=== PATIENT | female | born 1990 | race African-American/Black ===

== ENCOUNTER 2020-08-13 15:45 | Emergency (ER) | payer MEDICAID, OTHER ==
[~2020-08-13] VITALS: Ht 167.6 cm; Wt 110.0 kg
[2020-08-13] MEDS ORDERED: SODIUM CHLORIDE 0.9% 1,000 ML IV ONE (17:45)
[2020-08-13 17:56] LABS: BASOPHILS % 0.7 % (0.0-2.0); EOSINOPHILS % 1.9 % (0.0-5.0); HEMATOCRIT. 35.7 % (36.0-48.0); HEMOGLOBIN. 12.6 g/dL (12.0-16.0); LYMPHOCYTES % 19.6 % (20.0-50.0); MEAN CORPUSCULAR HEMOGLOBIN 34.2 pg (28.0-32.0); MEAN CORPUSCULAR VOLUME 97.2 fL (81.0-99.0); MEAN PLATELET VOLUME 8.9 fl (7.4-10.4); MONOCYTES % 7.2 % (2.0-8.0); NEUTROPHILS % 70.6 % (40.0-76.0); PLATELET 285 x1000/uL (130-400); RED BLOOD CELL COUNT 3.67 mill/uL (4.2-5.4); RED CELL DISTRIBUTION WIDTH 12.9 % (11.6-14.6)
[2020-08-13 17:59] LABS: CHLORIDE 108 mEq/L (98-107)
[2020-08-13 18:03] LABS: HCG SCREEN NEGATIVE
[2020-08-13] MEDS ORDERED: ASPIRIN 325MG EC TABLET PO ONE (18:30)
[2020-08-13] MEDS ORDERED: ACETAMINOPHEN 325MG TABLET PO ONE (18:30)
[2020-08-13 19:30] VITALS: BP 150/108
== END 2020-08-13 21:53 | disposition left against medical advice (07) ==
LOC: ER 15:45
DX: R07.89 Other chest pain (principal); F17.210 Nicotine dependence, cigarettes, uncomplicated; Z90.49 Acquired absence of other specified parts of digestive tract
CPT/HCPCS: 36415; 71045; 80053; 83880; 84484; 84703; 85025; 93005; 96360; 99285; J7030

== ENCOUNTER 2020-10-22 20:10 | Emergency (ER) | payer MEDICAID, OTHER ==
[~2020-10-22] VITALS: Ht 165.1 cm; Wt 107.0 kg
[~2020-10-22 20:10] MED LIST: IBUP-2029 MT
[2020-10-22 20:18] VITALS: BP 145/96
[2020-10-22 22:53] LABS: BASOPHILS % 0.4 % (0.0-2.0); EOSINOPHILS % 1.5 % (0.0-5.0); HEMOGLOBIN. 13.3 g/dL (12.0-16.0); LYMPHOCYTES % 19.5 % (20.0-50.0); MEAN CORPUSCULAR HEMOGLOBIN 33.8 pg (28.0-32.0); MEAN PLATELET VOLUME 8.8 fl (7.4-10.4); MONOCYTES % 6.3 % (2.0-8.0); NEUTROPHILS % 72.3 % (40.0-76.0); PLATELET 250 x1000/uL (130-400); RED BLOOD CELL COUNT 3.92 mill/uL (4.2-5.4); RED CELL DISTRIBUTION WIDTH 12.9 % (11.6-14.6)
[2020-10-22 23:00] LABS: CHLORIDE 107 mEq/L (98-107)
[2020-10-22 23:07] LABS: HCG SCREEN NEGATIVE
== END 2020-10-22 23:45 | disposition home or self-care (01) ==
LOC: ER 20:10
DX: R42 Dizziness and giddiness (principal); Z90.49 Acquired absence of other specified parts of digestive tract
CPT/HCPCS: 36415; 80048; 84703; 85025; 99283

== ENCOUNTER 2023-04-07 15:56 | Emergency (ER) | payer MEDICAID, OTHER ==
[~2023-04-07] VITALS: Ht 167.6 cm; Wt 75.0 kg
[2023-04-07 16:04] VITALS: BP 146/93; PULSE 101; RESP 16; TEMP 98.8; O2SAT 97
[2023-04-07] MEDS ORDERED: HYDROCODONE/ACETAMINOPHEN 5/325MG TABLET PO STA (16:22)
[2023-04-07] MEDS ORDERED: ONDANSETRON 4MG ODT PO STA (16:22)
[2023-04-07] MEDS ORDERED: MAGNESIUM/ALUMINUM HYDROXIDE/SIMETHICONE 30ML UDC PO STA (16:22)
[2023-04-07 16:49] LABS: BASOPHILS % 0.7 % (0.0-2.0); DIFFERENTIAL COMMENT 0; EOSINOPHILS % 2.3 % (0.0-5.0); HEMATOCRIT. 39.6 % (36.0-48.0); HEMOGLOBIN. 13.7 g/dL (12.0-16.0); LYMPHOCYTES % 22.4 % (20.0-50.0); MEAN CORPUSCULAR HEMOGLOBIN 35.5 pg (28.0-32.0); MEAN CORPUSCULAR HGB CONC 34.6 g/dL (31.0-37.0); MEAN CORPUSCULAR VOLUME 102.7 fL (81.0-99.0); MEAN PLATELET VOLUME 8.4 fl (7.4-10.4); MONOCYTES % 6.5 % (2.0-8.0); NEUTROPHILS % 68.1 % (40.0-76.0); PLATELET 293 x1000/uL (130-400); RED BLOOD CELL COUNT 3.85 mill/uL (4.2-5.4); RED CELL DISTRIBUTION WIDTH 13.1 % (11.6-14.6); WHITE BLOOD COUNT 9.8 x1000/uL (4.5-11.0)
[2023-04-07 17:04] LABS: HCG SCREEN NEGATIVE
[2023-04-07 17:05] LABS: ALANINE AMINOTRANSFERASE 20 IU/L (10-49); ALBUMIN 4.6 g/dL (3.2-4.8); ASPARTATE AMINOTRANSFERASE 24 IU/L (<34); BILIRUBIN TOTAL 0.3 mg/dL (0.1-1.0); CALCIUM 9.1 mg/dL (8.7-10.4); CARBON DIOXIDE 28 mEq/L (21-32); CHLORIDE 103 mEq/L (98-107); CREATININE 0.9 mg/dL (0.6-1.0); GLUCOSE 78 mg/dL (70-105); POTASSIUM 4.4 mEq/L (3.5-5.1); PROTEIN TOTAL 7.5 g/dL (6.0-8.3); SODIUM 135 mEq/L (136-145); UREA NITROGEN BLOOD 13 mg/dL (9-23)
[2023-04-07] MEDS ORDERED: PROT40 MT (19:45)
[2023-04-07] MEDS ORDERED: SIME125C MT (19:45)
[2023-04-07] MEDS ORDERED: ONDANSETRON 4MG ODT PO NR (21:00)
[2023-04-07] MEDS ORDERED: HYDROCODONE/ACETAMINOPHEN 5/325MG TABLET PO NR (21:00)
[2023-04-07] MEDS ORDERED: MAGNESIUM/ALUMINUM HYDROXIDE/SIMETHICONE 30ML UDC PO NR (21:00)
== END 2023-04-07 22:15 | disposition home or self-care (01) ==
LOC: ER 17:20
DX: R10.816 Epigastric abdominal tenderness (principal)
CPT/HCPCS: 36415; 76700; 80053; 84703; 85025; 99284

== ENCOUNTER 2024-04-22 14:46 | Emergency (ER) | payer MEDICAID ==
[~2024-04-22] VITALS: Ht 172.7 cm; Wt 91.0 kg
[~2024-04-22 14:46] MED LIST changes: +PROT40 MT; +SIME125C MT
[2024-04-22 14:47] VITALS: BP 150/99; PULSE 92; RESP 18; TEMP 36.6; O2SAT 100
[2024-04-22 16:25] LABS: BASOPHILS % 0.5 % (0.0-2.0); EOSINOPHILS % 1.7 % (0.0-5.0); HEMATOCRIT. 41.6 % (36.0-48.0); HEMOGLOBIN. 13.5 g/dL (12.0-16.0); LYMPHOCYTES % 18.5 % (20.0-50.0); MEAN CORPUSCULAR HEMOGLOBIN 32.4 pg (28.0-32.0); MEAN CORPUSCULAR HGB CONC 32.5 g/dL (31.0-37.0); MEAN CORPUSCULAR VOLUME 99.7 fL (81.0-99.0); MEAN PLATELET VOLUME 8.9 fl (7.4-10.4); MONOCYTES % 4.1 % (2.0-8.0); NEUTROPHILS % 75.2 % (40.0-76.0); PLATELET 327 x1000/uL (130-400); RED BLOOD CELL COUNT 4.17 mill/uL (4.2-5.4); RED CELL DISTRIBUTION WIDTH 13.6 % (11.6-14.6); WHITE BLOOD COUNT 12.6 x1000/uL (4.5-11.0)
[2024-04-22 16:30] LABS: CHLORIDE 103 mEq/L (98-107); POTASSIUM 3.8 mEq/L (3.5-5.1); SODIUM 140 mEq/L (136-145)
[2024-04-22 16:31] LABS: CARBON DIOXIDE 28 mEq/L (21-32)
[2024-04-22 16:32] LABS: CALCIUM 9.4 mg/dL (8.7-10.4)
[2024-04-22 16:36] LABS: CREATININE 0.8 mg/dL (0.6-1.0); GLUCOSE 94 mg/dL (70-105)
[2024-04-22 16:37] LABS: UREA NITROGEN BLOOD 8 mg/dL (9-23)
[2024-04-22 16:47] LABS: HCG SCREEN NEGATIVE
[2024-04-22 16:51] LABS: TROPONIN I HIGH SENSITIVITY < 4 ng/L (3.0-34)
== END 2024-04-22 16:16 | disposition left against medical advice (07) ==
LOC: ER 14:46
DX: R07.9 Chest pain, unspecified (principal); Z53.21 Procedure and treatment not carried out due to patient leaving prior to being seen by health care provider
CPT/HCPCS: 36415; 71045; 80048; 84484; 84703; 85025; 93005

== ENCOUNTER 2024-04-28 14:38 | Emergency (ER) | payer MEDICAID ==
[~2024-04-28] VITALS: Ht 172.7 cm; Wt 69.0 kg
[2024-04-28 14:40] VITALS: BP 119/74; PULSE 90; RESP 18; TEMP 36.7; O2SAT 100
== END 2024-04-28 16:26 | disposition left against medical advice (07) ==
LOC: ER 14:38
DX: Z76.0 Encounter for issue of repeat prescription (principal); R00.0 Tachycardia, unspecified; Z53.21 Procedure and treatment not carried out due to patient leaving prior to being seen by health care provider
CPT/HCPCS: 93005

== ENCOUNTER 2024-04-28 16:47 | Emergency (ER) | payer MEDICAID ==
[~2024-04-28] VITALS: Ht 165.1 cm; Wt 90.7 kg
[2024-04-28 16:49] VITALS: O2SAT 100
[2024-04-28 16:52] VITALS: BP 148/88; PULSE 97; RESP 14; TEMP 36.8; O2SAT 100
== END 2024-04-28 17:20 | disposition left against medical advice (07) ==
LOC: ER 16:47
DX: R07.89 Other chest pain (principal); Z53.21 Procedure and treatment not carried out due to patient leaving prior to being seen by health care provider

== ENCOUNTER 2024-04-28 17:42 | Emergency (ER) | payer MEDICAID, OTHER ==
[~2024-04-28] VITALS: Ht 165.1 cm; Wt 90.7 kg
[2024-04-28 17:45] VITALS: PULSE 99; RESP 16; O2SAT 100
[2024-04-28 17:49] VITALS: BP 149/88; TEMP 36.7; O2SAT 100
== END 2024-04-28 19:49 | disposition left against medical advice (07) ==
LOC: ER 17:42
DX: R46.1 Bizarre personal appearance (principal); Z53.21 Procedure and treatment not carried out due to patient leaving prior to being seen by health care provider
CPT/HCPCS: 99281

== ENCOUNTER 2024-04-29 00:19 | Emergency (ER) | payer MEDICAID, OTHER ==
[~2024-04-29] VITALS: Ht 170.2 cm; Wt 73.0 kg
[2024-04-29 00:35] VITALS: BP 158/92; PULSE 93; RESP 16; TEMP 36.7; O2SAT 97
== END 2024-04-29 01:58 | disposition left against medical advice (07) ==
LOC: ER 00:19
DX: R10.9 Unspecified abdominal pain (principal); Z53.21 Procedure and treatment not carried out due to patient leaving prior to being seen by health care provider